=== PATIENT | female | born 1990 | race African-American/Black ===

== ENCOUNTER 2019-03-02 10:47 | Emergency (ER) | payer OTHER ==
[2019-03-02] MEDS ORDERED: SODIUM CHLORIDE 0.9% 1,000 ML IV ONE (11:33)
--- NOTE | 2019-03-02 11:33 | ED Physician Documentation ---
History of Present Illness - Stated complaint Stated Complaint: BLEEDING/10 WKS - Chief complaint Chief Complaint: General - History obtained from History obtained from: Patient - Additonal information Additional information: Patient is a 28-year-old female, , approximately 10 weeks presenting with vaginal spotting and lower abdominal cramping over the past 1 to 2 days. Patient denies other abdominal pain, nausea, vomiting, urinary changes, or stool changes. Patient also denies fever. Patient reports that she has been considered a high risk previously as her first child was premature by 2 months. Patient has not yet received an ultrasound to confirm this and has not yet received any care, but has been taking vitamins. No other improving or worsening factors noted. Review of Systems Constitutional: denies: Fever GI: reports: Abdominal Pain. denies: Nausea, Vomiting, Diarrhea : reports: Vaginal bleeding. denies: Dysuria PD PAST MEDICAL HISTORY - Past Medical History Past Medical History: No - Past Surgical History Past Surgical History: No - Allergies Allergies/Adverse Reactions: Allergies Allergy/AdvReac Type Severity Reaction Status Date / Time No Known Drug Allergies Allergy Verified 03/02/19 11:05 PD ED PE NORMAL - Vitals Vital signs reviewed: Yes - General General: Alert and oriented X 3, No acute distress, Well developed/nourished - HEENT HEENT: Atraumatic, Moist mucous membranes - Cardiac Cardiac: RRR, No murmur - Respiratory Respiratory: No respiratory distress, Clear bilaterally - Abdomen Abdomen: Soft, Non tender, Non distended, Other (Non gravid) - Derm Derm: Normal color, Warm and dry, No rash - Extremities Extremities: No deformity, No tenderness to palpate - Neuro Neuro: Alert and oriented X 3, No motor deficit, No sensory deficit - Psych Psych: Normal mood, Normal affect Results - Vitals Vitals: Vital Signs - 24 hr 03/02/19 03/02/19 11:02 11:23 Temperature 36.6 C Heart Rate 85 86 Respiratory 14 20 Rate Blood Pressure 113/67 121/60 O2 Saturation 99 99 Oxygen O2 Source Room air - Labs Labs: Laboratory Tests 03/02/19 03/02/19 03/02/19 11:40 11:40 11:43 WBC 9.3 RBC 4.54 Hgb 13.0 Hct 41.8 MCV 92.1 MCH 28.6 MCHC 31.1 L RDW 12.7 Plt Count 262 MPV 10.0 Neut # (Auto) 6.3 Lymph # (Auto) 2.0 [place] # (Auto) 0.8 Eos # (Auto) 0.1 Baso # (Auto) 0.1 Absolute Nucleated RBC 0.00 Nucleated RBC % 0.0 Sodium 134 L Potassium 4.1 Chloride 102 Carbon Dioxide 25 Anion Gap 7.0 BUN 11 Creatinine 0.5 Estimated GFR (MDRD) 177 Glucose 82 Calcium 9.5 Total Bilirubin 0.6 AST 18 ALT 16 Alkaline Phosphatase 33 L Total Protein 8.0 Albumin 4.3 Globulin 3.7 Albumin/Globulin Ratio 1.2 Lipase 44 HCG, Quant 096952.00 Urine Color Urine Clarity Urine pH Ur Specific [place] Urine Protein Urine Glucose (UA) Urine Ketones Urine Occult Blood Urine Nitrite Urine Bilirubin Urine Urobilinogen Ur Leukocyte Esterase Ur Microscopic Review Urine Culture Comments Blood Type Antibody Screen 03/02/19 03/02/19 11:43 Unknown WBC RBC Hgb Hct MCV MCH MCHC RDW Plt Count MPV Neut # (Auto) Lymph # (Auto) [place] # (Auto) Eos # (Auto) Baso # (Auto) Absolute Nucleated RBC Nucleated RBC % Sodium Potassium Chloride Carbon Dioxide Anion Gap BUN Creatinine Estimated GFR (MDRD) Glucose Calcium Total Bilirubin AST ALT Alkaline Phosphatase Total Protein Albumin Globulin Albumin/Globulin Ratio Lipase HCG, Quant Urine Color YELLOW Urine Clarity CLEAR Urine pH 6.5 Ur Specific [place] 1.020 Urine Protein NEGATIVE Urine Glucose (UA) NEGATIVE Urine Ketones NEGATIVE Urine Occult Blood NEGATIVE Urine Nitrite NEGATIVE Urine Bilirubin NEGATIVE Urine Urobilinogen 0.2 (NORMAL) Ur Leukocyte Esterase NEGATIVE Ur Microscopic Review NOT INDICATED Urine Culture Comments NOT INDICATED Blood Type O POSITIVE Antibody Screen NEGATIVE PD MEDICAL DECISION MAKING - ED course Complexity details: reviewed results, re-evaluated patient, considered differential, d/w patient ED course: Patient presenting with painless bleeding and first trimester . Have low suspicion for placental abruption or previa, but considered. Also concerning for impending or threatened miscarriage. No signs of complications that would reflect gestational hypertension, preeclampsia, eclampsia, or HELLP syndrome. Physical exam is rather unremarkable. Patient started on IV fluids, but did not require medications. Rh testing returned positive and patient did not require RhoGam. Screening lab work and urinalysis returned relatively unremarkable.No signs of infection or other complications present. Ultrasound found evidence of an intrauterine with appropriate heart rate approximately 8 weeks in gestation.. Gestational bleed was noted and this was communicated at length to the patient. Advised to continue with vitamins, as well as recommended close MAKE UP GIRL follow-up. Also discussed other supportive cares and return precautions. Patient voiced understanding and is comfortable with discharge plan. Departure - Departure Disposition: 01 Home, Self Care Clinical Impression: Vaginal bleeding affecting early Condition: Good Instructions: Bleeding Early Preg Follow-Up: your,doctor [Other] - Within 3 Days Comments: Please continue vitamins. Please contact your MAKE UP GIRL later today or tomorrow to schedule close follow-up, likely to include repeat ultrasound given findings today. Return to ED sooner if experience worsening bleeding, worsening pain, fever, or other concerns.
[2019-03-02 11:43] LABS: BILIRUBIN,URINE NEGATIVE (NEGATIVE); GLUCOSE, URINE (UA) NEGATIVE (NEGATIVE); KETONES,URINE (UA) NEGATIVE (NEGATIVE); LEUKOCYTE ESTERASE, URINE NEGATIVE (NEGATIVE); NITRITE,URINE NEGATIVE (NEGATIVE); OCCULT BLOOD,URINE NEGATIVE (NEGATIVE); PH,URINE 6.5 PH (5.0-7.5); PROTEIN,URINE NEGATIVE (NEGATIVE); UROBILINOGEN,URINE 0.2 (NORMAL) E.U./dL (NORMAL)
[2019-03-02 11:44] LABS: CLARITY,URINE CLEAR (CLEAR)
[2019-03-02 11:52] LABS: BASOPHILS # (AUTO) 0.1 10^3/uL (0.0-0.1); BASOPHILS % (AUTO) 0.5 %; EOSINOPHILS # (AUTO) 0.1 10^3/uL (0.0-0.7); LYMPHOCYTES % (AUTO) 21.7 %; MEAN CORPUSCULAR HEMOGLOBIN 28.6 pg (27.0-31.0); MEAN CORPUSCULAR HGB CONC 31.1 g/dL (32.0-36.0); MEAN CORPUSCULAR VOLUME 92.1 fL (81.0-99.0); MONOCYTES # (AUTO) 0.8 10^3/uL (0.0-1.0); MONOCYTES % (AUTO) 8.8 %; NEUTROPHILS # (AUTO) 6.3 10^3/uL (1.5-6.6); NEUTROPHILS % (AUTO) 67.8 %; PLT - PLATELET COUNT 262 10^3/uL (130-450); RED BLOOD COUNT 4.54 10^6/uL (4.20-5.40); RED CELL DISTRIBUTION WIDTH 12.7 % (12.0-15.0); WHITE BLOOD COUNT 9.3 x10^3/uL (4.8-10.8)
[2019-03-02 13:00] LABS: ALBUMIN 4.3 g/dL (3.2-5.5); ALBUMIN/GLOBULIN RATIO 1.2 (1.0-2.2); BILIRUBIN,TOTAL 0.6 mg/dL (0.2-1.0); CALCIUM 9.5 mg/dL (8.5-10.3); CREATININE 0.5 mg/dL (0.4-1.0)
--- NOTE | 2019-03-02 13:51 | Ultrasound Report ---
Reason: 10 weeks, bleeding and cramping Procedure Date: 03/02/2019 Accession Number: [id number] / [id number] Procedure: US - OB First Trimester CPT Code: FULL RESULT: EXAM: FIRST TRIMESTER OBSTETRIC ULTRASOUND (Less than 11 weeks) EXAM DATE: 03/02/2019 12:54 PM. CLINICAL HISTORY: Early , spotting and cramping. LMP: 12/29/2018. COMPARISONS: None. TECHNIQUE: Transabdominal ultrasound examination with static image documentation. CLINICAL DATES: EGA 9 weeks 0 days with ANKUSH 10/05/2019 based on LMP. ASSESSMENT: Gestational Sac: Single intrauterine. Mean gestational sac diameter: 29 mm = 8 weeks 0 days. Embryo: CRL (crown-rump length) 16.5 mm = 8 weeks 1 day. Cardiac activity: 169 beats per minute. Yolk sac: 3 mm. Amniotic fluid: Not accurately assessed at this gestational age. Early placenta: Not visible at this gestational age. Other: A perigestational fluid collection measures 8 x 10 x 16 mm.. MATERNAL STRUCTURES: Uterus: Anteverted. Unremarkable. Cervix: Closed. Right Ovary/Adnexa: The ovary measures 4.8 x 4.2 x 3.3 cm, volume 35 cc. Unremarkable. Left Ovary/Adnexa: The ovary measures 3.5 x 2.7 x 2.5 cm, volume 13 cc. Unremarkable. Free Fluid: None. Other: None. IMPRESSION: 1. Single viable intrauterine at EGA 8 weeks 1 day with ANKUSH 10/11/2019 based on crown-rump length, which is concordant with ANKUSH of 10/05/2019 based on LMP. 2. 1.6 cm arturo-gestational bleed noted. RADIA
[2019-03-02 14:38] VITALS: BP 102/72
== END 2019-03-02 14:40 | disposition home or self-care (01) ==
LOC: ED 10:47
DX: O20.9 Hemorrhage in early pregnancy, unspecified (principal); Z3A.08 8 weeks gestation of pregnancy; O09.211 Supervision of pregnancy with history of pre-term labor, first trimester
CPT/HCPCS: 36415; 76801; 80053; 81001; 81003; 83690; 84702; 85025; 86850; 86900; 86901; 87086; 96360; 99283; 99284

== ENCOUNTER 2019-09-05 08:00 | Outpatient (CLI) | payer OTHER ==
[2019-09-06 16:38] LABS: TRICHOMONAS VAGINALIS DNA NEGATIVE (NEGATIVE)
== END 2019-09-05 23:59 | disposition home or self-care (01) ==
LOC: LAB.R 08:00
PROVIDERS: ATTEND Obstetrics & Gynecology
DX: Z34.83 Encounter for supervision of other normal pregnancy, third trimester (principal)
CPT/HCPCS: 87491; 87591; 87661; 87797

== ENCOUNTER 2019-09-22 14:10 | Outpatient (CLI) | payer OTHER ==
[2019-09-22 14:52] LABS: HGB - HEMOGLOBIN 12.2 g/dL (12.0-16.0); MEAN CORPUSCULAR HEMOGLOBIN 29.9 pg (27.0-31.0); MEAN CORPUSCULAR HGB CONC 32.8 g/dL (32.0-36.0); MEAN CORPUSCULAR VOLUME 91.2 fL (81.0-99.0); MEAN PLATELET VOLUME 10.1 fL (7.9-10.8); RED BLOOD COUNT 4.08 10^6/uL (4.20-5.40); WHITE BLOOD COUNT 9.2 x10^3/uL (4.8-10.8)
[2019-09-22 15:15] LABS: CREATININE,URINE 120.2 mg/dL; PROTEIN/CREATININE RATIO,URINE 0.2 (<=0.2)
[2019-09-22 15:18] LABS: ALBUMIN 3.8 g/dL (3.2-5.5); BILIRUBIN,TOTAL 0.6 mg/dL (0.2-1.0); CALCIUM 9.4 mg/dL (8.5-10.3); CREATININE 0.4 mg/dL (0.4-1.0); TOTAL PROTEIN 7.5 g/dL (6.7-8.2)
== END 2019-09-22 14:11 | disposition home or self-care (01) ==
LOC: LAB 14:10
PROVIDERS: ATTEND Obstetrics & Gynecology
DX: O12.13 Gestational proteinuria, third trimester (principal); Z3A.00 Weeks of gestation of pregnancy not specified
CPT/HCPCS: 36415; 80053; 82570; 84156; 85027

== ENCOUNTER 2019-10-04 16:37 | Inpatient (IN) | payer OTHER ==
[2019-10-04] MEDS ORDERED: LEVONORGESTREL 20 MCG/24H IUD IY ONE ×3 (17:03→20:11)
[2019-10-04] MEDS ORDERED: SODIUM CHLORIDE FLUSH 0.9% 10 ML SYRINGE IVP PRN ×2 (17:08→17:33)
--- NOTE | 2019-10-04 17:17 | HISTORY & PHYSICAL EXAMINATION ---
Admit History - : 4 Parity: 2 Premature: 1 Ectopic: 0 : 1 Care: positive: [facility] Risk/History: positive: Other Complications This : positive: None Smoking Status: Never smoker - Mother's Labs Mother's Blood Type: positive: O Mother's RH: positive: Positive GBS: positive: Group B Step Negative Rubella Status: positive: Immune - Other Maternal History Other Maternal History: 29yo at 39 6/7 weeks by LMP c/w second trimester US O+ GBS neg presents with c/o contractions for the past 1-2 hours, stronger than they have been. No fluid leak or bleeding. No headache, n/v/f/c or dysuria. Denies complications. Pt has h/o fast labor. RPR/HepB & C/HIV NR GC/chlamydia neg Glucola 81 Varicella titer + Meds/Allgy - Home Medications Home Medications: Ambulatory Orders Medication Instructions Recorded Confirmed Pnv No.95/Ferrous Fum/Folic AC 1 cap PO DAILY 10/04/19 10/04/19 [ Caplet] - Allergies Allergies/Adverse Reactions: Allergies Allergy/AdvReac Type Severity Reaction Status Date / Time No Known Drug Allergies Allergy Verified 03/02/19 11:05 Review of Systems - All Other Systems All Other Systems: reports: Other (Neg except as noted) Physical - Abdominal Exam Vital Signs: Temp Pulse Resp BP Pulse Ox 98.1 F 88 20 125/81 H 99 10/04/19 16:49 10/04/19 16:49 10/04/19 16:49 10/04/19 16:49 10/04/19 16:49 Contraction Frequency (min/apart): 10-15 minutes Contraction Intensity: positive: Mild to moderate Uterine Resting Tone: positive: Soft - Monitoring Strip Review: positive: Category I - Presentation Presentation: positive: Vertex - Vaginal Exam Dilation (in cm): 1-2 Effacement (%): 0 Station: positive: -3 Cervical Position: positive: Posterior (Vertex by scan) - Speculum Exam Speculum Exam Performed: positive: No - Other Notes Labor Progress Note/Additional Text: HEENT/ NC/AT No nodes, neck supple RESP/ CTA CV/ RRR 3/6 systolic murmur along LSB ABD/ Gravid, non-tender. VE as noted Plan for Labor - Plan For Labor Plan for Labor: 29yo at 39 6/7 weeks, O+ GBS neg in prodromal labor. Plan IOL/augmentation. Cervix unfavorable, will start with cytotec. Transition to pit as indicated. EFW 3400gms Expect Planning epidural anesthesia and Mirena immediately . Physical Exam Height: 5 ft 7 in
[2019-10-04] MEDS ORDERED: ONDANSETRON 4 MG/2 ML VIAL IVP PRN (17:33)
[2019-10-04] MEDS ORDERED: fentaNYL 100 MCG/2 ML VIAL IVP PRN (17:33)
[2019-10-04] MEDS ORDERED: LACTATED RINGERS 1,000 ML IV SCH (18:00)
[2019-10-04] MEDS: miSOPROStoL 100 MCG TABLET PO SCH ×2 (18:22→22:16)
[2019-10-04 18:47] LABS: BASOPHILS % (AUTO) 0.2 %; EOSINOPHILS # (AUTO) 0.1 10^3/uL (0.0-0.7); EOSINOPHILS % (AUTO) 1.1 %; HGB - HEMOGLOBIN 12.1 g/dL (12.0-16.0); LYMPHOCYTES # (AUTO) 1.5 10^3/uL (1.5-3.5); LYMPHOCYTES % (AUTO) 16.5 %; MEAN CORPUSCULAR HEMOGLOBIN 30.1 pg (27.0-31.0); MEAN CORPUSCULAR HGB CONC 33.4 g/dL (32.0-36.0); MEAN PLATELET VOLUME 10.9 fL (7.9-10.8); MONOCYTES # (AUTO) 0.8 10^3/uL (0.0-1.0); MONOCYTES % (AUTO) 9.3 %; NEUTROPHILS # (AUTO) 6.5 10^3/uL (1.5-6.6); NEUTROPHILS % (AUTO) 71.9 %; PLT - PLATELET COUNT 176 10^3/uL (130-450); RED BLOOD COUNT 4.02 10^6/uL (4.20-5.40); RED CELL DISTRIBUTION WIDTH 13.3 % (12.0-15.0); WHITE BLOOD COUNT 9.1 x10^3/uL (4.8-10.8)
[2019-10-05] MEDS: miSOPROStoL 100 MCG TABLET PO SCH ×2 (02:15→06:27)
--- NOTE | 2019-10-05 07:43 | PROVIDER PROGRESS NOTE ---
Subjective - Prog Note Date Prog Note Date: 10/05/19 Prog Note Time: 07:41 - Subjective Subjective: Slept overnight. Starting to feel contractions a bit more. S/P miso x4, last at 06:20 VSS afeb Category 1 tracing Contractions moderate to palpation q 2-3 Exam deferred Continue current plan. Transition to pit as indicated. Labs normal Objective - Vital Signs/Intake & Output Intake & Output: Intake & Output 10/02/19 10/03/19 10/04/19 10/05/19 23:59 23:59 23:59 23:59 Intake Total 500 Balance 500 - Lab Results Fish Bones: 10/04/19 18:14 Other Labs: Lab Results x24hrs 10/04/19 10/04/19 Range/Units 18:14 18:14 WBC 9.1 (4.8-10.8) x10^3/uL RBC 4.02 L (4.20-5.40) 10^6/uL Hgb 12.1 (12.0-16.0) g/dL Hct 36.2 L (37.0-47.0) % MCV 90.0 (81.0-99.0) fL MCH 30.1 (27.0-31.0) pg MCHC 33.4 (32.0-36.0) g/dL RDW 13.3 (12.0-15.0) % Plt Count 176 (130-450) 10^3/uL MPV 10.9 H (7.9-10.8) fL Neut # (Auto) 6.5 (1.5-6.6) 10^3/uL Lymph # (Auto) 1.5 (1.5-3.5) 10^3/uL [place] # (Auto) 0.8 (0.0-1.0) 10^3/uL Eos # (Auto) 0.1 (0.0-0.7) 10^3/uL Baso # (Auto) 0.0 (0.0-0.1) 10^3/uL Absolute Nucleated RBC 0.00 x10^3/uL Nucleated RBC % 0.0 /100WBC Blood Type O POSITIVE Antibody Screen NEGATIVE
[2019-10-05] MEDS ORDERED: LACTATED RINGERS 1,000 ML IV SCH ×2 (10:21→15:00)
--- NOTE | 2019-10-05 10:25 | PROVIDER PROGRESS NOTE ---
Subjective - Prog Note Date Prog Note Date: 10/05/19 Prog Note Time: 10:23 - Subjective Subjective: Continues to be fairly comfortable VSS afeb Category 1 Exam 2/-3, minimal change Plan to start pitocin; contrac tions too frequent for another dose of miso. Consider AROM when head applied Objective - Vital Signs/Intake & Output Intake & Output: Intake & Output 10/02/19 10/03/19 10/04/19 10/05/19 23:59 23:59 23:59 23:59 Intake Total 700 Balance 700 - Lab Results Fish Bones: 10/04/19 18:14 Other Labs: Lab Results x24hrs 10/04/19 10/04/19 Range/Units 18:14 18:14 WBC 9.1 (4.8-10.8) x10^3/uL RBC 4.02 L (4.20-5.40) 10^6/uL Hgb 12.1 (12.0-16.0) g/dL Hct 36.2 L (37.0-47.0) % MCV 90.0 (81.0-99.0) fL MCH 30.1 (27.0-31.0) pg MCHC 33.4 (32.0-36.0) g/dL RDW 13.3 (12.0-15.0) % Plt Count 176 (130-450) 10^3/uL MPV 10.9 H (7.9-10.8) fL Neut # (Auto) 6.5 (1.5-6.6) 10^3/uL Lymph # (Auto) 1.5 (1.5-3.5) 10^3/uL [place] # (Auto) 0.8 (0.0-1.0) 10^3/uL Eos # (Auto) 0.1 (0.0-0.7) 10^3/uL Baso # (Auto) 0.0 (0.0-0.1) 10^3/uL Absolute Nucleated RBC 0.00 x10^3/uL Nucleated RBC % 0.0 /100WBC Blood Type O POSITIVE Antibody Screen NEGATIVE
[2019-10-05] MEDS ORDERED: OXYTOCIN/DEXTROSE 5 % 30 UNIT/500 ML BAG IV SCH (11:00)
--- NOTE | 2019-10-05 12:16 | PROVIDER PROGRESS NOTE ---
Subjective - Prog Note Date Prog Note Date: 10/05/19 Prog Note Time: 12:14 - Subjective Subjective: Asking for epidural. Contractions palpate strong. Pit at 4 VSS afeb Category 1 tracing VE 4cm/90/-2 BOWI Good progress. Will call for epidural then consider AROM Objective - Vital Signs/Intake & Output Intake & Output: Intake & Output 10/02/19 10/03/19 10/04/19 10/05/19 23:59 23:59 23:59 23:59 Intake Total 700 Balance 700 - Lab Results Fish Bones: 10/04/19 18:14 Other Labs: Lab Results x24hrs 10/04/19 10/04/19 Range/Units 18:14 18:14 WBC 9.1 (4.8-10.8) x10^3/uL RBC 4.02 L (4.20-5.40) 10^6/uL Hgb 12.1 (12.0-16.0) g/dL Hct 36.2 L (37.0-47.0) % MCV 90.0 (81.0-99.0) fL MCH 30.1 (27.0-31.0) pg MCHC 33.4 (32.0-36.0) g/dL RDW 13.3 (12.0-15.0) % Plt Count 176 (130-450) 10^3/uL MPV 10.9 H (7.9-10.8) fL Neut # (Auto) 6.5 (1.5-6.6) 10^3/uL Lymph # (Auto) 1.5 (1.5-3.5) 10^3/uL [place] # (Auto) 0.8 (0.0-1.0) 10^3/uL Eos # (Auto) 0.1 (0.0-0.7) 10^3/uL Baso # (Auto) 0.0 (0.0-0.1) 10^3/uL Absolute Nucleated RBC 0.00 x10^3/uL Nucleated RBC % 0.0 /100WBC Blood Type O POSITIVE Antibody Screen NEGATIVE
[2019-10-05] MEDS ORDERED: LIDOCAINE-MPF 1% 30 ML VIAL ONE (12:29)
[2019-10-05] MEDS ORDERED: ROPIVACAINE 0.2% 200 MG/100 ML BAG EP ONE (12:29)
[2019-10-05] MEDS ORDERED: NALBUPHINE 10 MG/ML AMP IVP PRN (13:06)
[2019-10-05] MEDS ORDERED: METOCLOPRAMIDE 10 MG/2 ML VIAL IVP PRN (13:06)
[2019-10-05] MEDS ORDERED: ROPIVACAINE 0.2% 200 MG/100 ML BAG EP PRN (13:06)
[2019-10-05] MEDS ORDERED: LACTATED RINGERS 500 ML IV ONE (13:06)
[2019-10-05] MEDS ORDERED: NALOXONE 0.4 MG/ML VIAL IVP PRN (13:06)
[2019-10-05] MEDS ORDERED: diphenhydrAMINE INJ 50 MG/ML VIAL IVP PRN (13:06)
[2019-10-05] MEDS ORDERED: ONDANSETRON 4 MG/2 ML VIAL IVP PRN (13:06)
[2019-10-05] MEDS ORDERED: ePHEDrine 50 MG/ML VIAL IVP PRN (13:06)
--- NOTE | 2019-10-05 13:06 | ANESTHESIA ---
Pre-Anesthesia VS, & Labs - Diagnosis active labor - Procedure labor epidural Vital Signs: Temp Pulse Resp BP Pulse Ox 36.7 C 88 20 125/81 H 99 10/04/19 16:49 10/04/19 16:49 10/04/19 16:49 10/04/19 16:49 10/04/19 16:49 Height 5 ft 7 in Weight (kg) 87.09 kg Body Mass Index 25.0 - Is Patient ?: Yes - Lab Results Current Lab Results: Laboratory Tests 10/04/19 18:14: Blood Type O POSITIVE, Antibody Screen NEGATIVE 10/04/19 18:14: WBC 9.1, RBC 4.02 L, Hgb 12.1, Hct 36.2 L, MCV 90.0, MCH 30.1, MCHC 33.4, RDW 13.3, Plt Count 176, MPV 10.9 H, Neut # (Auto) 6.5, Lymph # (Auto) 1.5, [place] # (Auto) 0.8, Eos # (Auto) 0.1, Baso # (Auto) 0.0, Absolute Nucleated RBC 0.00, Nucleated RBC % 0.0 Fish Bones: 10/04/19 18:14 Home Medications and Allergies Home Medications: Ambulatory Orders Pnv No.95/Ferrous Fum/Folic AC [ Caplet] 1 cap PO DAILY 10/04/19 Active Medications Fentanyl (Fentanyl) 50 mcg IVP Q1H PRN PRN Reason: PAIN OXYTOCIN/DEXTROSE 5 % (Pitocin/Dextrose 5%) 30 unit in 500 mls @ 2 mls/hr IV TITR ELDON; Protocol Last Admin: 10/05/19 10:32 Dose: 2 milliunit/min, 2 mls/hr Lactated Ringer's (Lr) 1,000 mls @ 250 mls/hr IV .Q4H ELDON Last Admin: 10/05/19 10:34 Dose: 250 mls/hr Misoprostol (Cytotec) 50 mcg PO Q4H ELDON Last Admin: 10/05/19 06:27 Dose: 50 mcg Ondansetron HCl (Zofran Inj) 4 mg IVP Q4H PRN PRN Reason: Nausea / Vomiting Sodium Chloride (Normal Saline Flush 0.9%) 10 ml IVP PRN PRN PRN Reason: NEEDED PER PROVIDER ORDERS Sodium Chloride (Normal Saline Flush 0.9%) 10 ml IVP 0100,0900,1700 ELDON Sodium Chloride (Normal Saline Flush 0.9%) 10 ml IVP PRN PRN PRN Reason: NEEDED PER PROVIDER ORDERS Pnv No.95/Ferrous Fum/Folic AC [ Caplet] 1 cap PO DAILY 10/04/19 Allergies/Adverse Reactions: Allergies Allergy/AdvReac Type Severity Reaction Status Date / Time No Known Drug Allergies Allergy Verified 03/02/19 11:05 Anes History & Medical History - Anesthetic History Anesthesia Complications: reports: No previous complications Family history of Anesthesia Complications: Denies Family history of Malignant Hyperthermia: Denies - Medical History Cardiovascular: reports: None Pulmonary: reports: None Gastrointestinal: reports: None Urinary: reports: Frequency Neuro: reports: None Musculoskeletal: reports: None Endocrine/Autoimmune: reports: None Blood Disorders: reports: None Skin: reports: None Smoking Status: Never smoker Psychosocial: reports: No issues indicated - Obstetrical History : 4 Parity: 2 Events: positive: Other Complications: positive: None Exam General: Alert, Oriented x3, Cooperative, No acute distress Dental: WNL Mouth Openin Fingerbreadth Neck Mobility: Normal Mallampati classification: III Thyromental Distance: less than 4 cm Respiratory: Lungs clear, Normal breath sounds, No respiratory distress, No accessory muscle use Cardiovascular: Regular rate, Normal S1, Normal S2, No murmurs Abdomen: Normal bowel sounds, Soft, No tenderness, No hepatospenomegaly, No masses Extremities: No clubbing, No cyanosis, No edema, Normal pulses, No tenderness/swelling Neurological: Normal gait, Normal speech, Strength at 5/5 X4 ext, Normal tone, Sensation intact, Cranial nerves 3-12 NL, Reflexes 2+ Plan Anesthesia Type: Epidural Consent for Procedure(s) Verified and Reviewed: Yes Code Status: Attempt Resuscitation ASA classification: 2-Mild systemic disease Is this case an emergency?: No
--- NOTE | 2019-10-05 13:10 | PROVIDER PROGRESS NOTE ---
Subjective - Prog Note Date Prog Note Date: 10/05/19 Prog Note Time: 13:08 - Subjective Subjective: Epidural in place. VSS afeb Few early decels noted, very shallow Pit at 6 SROM at 12:54 clear VE 7cm/100/-1 Doing well. Expect soon. Objective - Vital Signs/Intake & Output Intake & Output: Intake & Output 10/02/19 10/03/19 10/04/19 10/05/19 23:59 23:59 23:59 23:59 Intake Total 700 Balance 700 - Lab Results Fish Bones: 10/04/19 18:14 Other Labs: Lab Results x24hrs 10/04/19 10/04/19 Range/Units 18:14 18:14 WBC 9.1 (4.8-10.8) x10^3/uL RBC 4.02 L (4.20-5.40) 10^6/uL Hgb 12.1 (12.0-16.0) g/dL Hct 36.2 L (37.0-47.0) % MCV 90.0 (81.0-99.0) fL MCH 30.1 (27.0-31.0) pg MCHC 33.4 (32.0-36.0) g/dL RDW 13.3 (12.0-15.0) % Plt Count 176 (130-450) 10^3/uL MPV 10.9 H (7.9-10.8) fL Neut # (Auto) 6.5 (1.5-6.6) 10^3/uL Lymph # (Auto) 1.5 (1.5-3.5) 10^3/uL [place] # (Auto) 0.8 (0.0-1.0) 10^3/uL Eos # (Auto) 0.1 (0.0-0.7) 10^3/uL Baso # (Auto) 0.0 (0.0-0.1) 10^3/uL Absolute Nucleated RBC 0.00 x10^3/uL Nucleated RBC % 0.0 /100WBC Blood Type O POSITIVE Antibody Screen NEGATIVE
--- NOTE | 2019-10-05 14:33 | PROVIDER PROGRESS NOTE ---
Subjective - Prog Note Date Prog Note Date: 10/05/19 Prog Note Time: 13:35 - Subjective Subjective: Feeling pressure. Fully dilated, +2 at 13:35 Will start pushing Objective - Vital Signs/Intake & Output Intake & Output: Intake & Output 10/02/19 10/03/19 10/04/19 10/05/19 23:59 23:59 23:59 23:59 Intake Total 700 Balance 700 - Lab Results Fish Bones: 10/04/19 18:14 Other Labs: Lab Results x24hrs 10/04/19 10/04/19 Range/Units 18:14 18:14 WBC 9.1 (4.8-10.8) x10^3/uL RBC 4.02 L (4.20-5.40) 10^6/uL Hgb 12.1 (12.0-16.0) g/dL Hct 36.2 L (37.0-47.0) % MCV 90.0 (81.0-99.0) fL MCH 30.1 (27.0-31.0) pg MCHC 33.4 (32.0-36.0) g/dL RDW 13.3 (12.0-15.0) % Plt Count 176 (130-450) 10^3/uL MPV 10.9 H (7.9-10.8) fL Neut # (Auto) 6.5 (1.5-6.6) 10^3/uL Lymph # (Auto) 1.5 (1.5-3.5) 10^3/uL [place] # (Auto) 0.8 (0.0-1.0) 10^3/uL Eos # (Auto) 0.1 (0.0-0.7) 10^3/uL Baso # (Auto) 0.0 (0.0-0.1) 10^3/uL Absolute Nucleated RBC 0.00 x10^3/uL Nucleated RBC % 0.0 /100WBC Blood Type O POSITIVE Antibody Screen NEGATIVE
--- NOTE | 2019-10-05 14:36 | DELIVERY NOTE ---
Delivery Note - Labor Labor: positive: Augmented by oxytocin - Delivery Method Infant Delivery Method: positive: Spontaneous vaginal delivery - Cervical Ripening Method Cervical Ripening Method: positive: Misoprostil - Presentation Presentation: positive: Vertex, YOHANA - right occiput anterior - Nuchal Cord Nuchal Cord: positive: None - Anesthetic Anesthetic Type: - Amniotic Fluid Description Amniotic Fluid Description: positive: Clear - Episiotomy Type Episiotomy Type: positive: None - Laceration Laceration: positive: None - Delivery Outcome Delivery Outcome: positive: Livebirth - : positive: Placed in direct skin contact with mother, Bulb syringe, Warmed, [place] used [place] sex: positive: Male - Cord Cord: positive: 3 vessels - Placenta Placenta: positive: Intact, Spontaneous - Estimated Blood Loss Estimated Blood Loss (in cc): 200 - Post Delivery Events Post Delivery Events: positive: No post delivery events (Mirena placed. Lot [id number] Exp November 2021)
[2019-10-05] MEDS ORDERED: SIMETHICONE CHEW 80 MG TABLET PO PRN (14:39)
[2019-10-05] MEDS ORDERED: WITCH HAZEL/GLYCERIN 1 PAD TOP PRN (14:39)
[2019-10-05] MEDS ORDERED: MAGNESIUM HYDROXIDE 2,400 MG/30 ML UDC PO PRN (14:39)
[2019-10-05] MEDS ORDERED: HYDROCORTISONE 1% CREAM 28 GM TUBE PR PRN (14:39)
--- NOTE | 2019-10-05 14:39 | PROVIDER PROGRESS NOTE ---
Subjective - Prog Note Date Prog Note Date: 10/05/19 Prog Note Time: 14:37 - Subjective Subjective: of 3610gm male infant apgars 8/9 at 14:09 from YOHANA. Spontaneous, vigorous cry. Placenta intact, normally inseted 3VC, delivered with traction No lacerations Mirena placed: Lot [id number], exp 11/2021 EBL 200cc Objective - Vital Signs/Intake & Output Intake & Output: Intake & Output 10/02/19 10/03/19 10/04/19 10/05/19 23:59 23:59 23:59 23:59 Intake Total 700 Balance 700 - Lab Results Fish Bones: 10/04/19 18:14 Other Labs: Lab Results x24hrs 10/04/19 10/04/19 Range/Units 18:14 18:14 WBC 9.1 (4.8-10.8) x10^3/uL RBC 4.02 L (4.20-5.40) 10^6/uL Hgb 12.1 (12.0-16.0) g/dL Hct 36.2 L (37.0-47.0) % MCV 90.0 (81.0-99.0) fL MCH 30.1 (27.0-31.0) pg MCHC 33.4 (32.0-36.0) g/dL RDW 13.3 (12.0-15.0) % Plt Count 176 (130-450) 10^3/uL MPV 10.9 H (7.9-10.8) fL Neut # (Auto) 6.5 (1.5-6.6) 10^3/uL Lymph # (Auto) 1.5 (1.5-3.5) 10^3/uL [place] # (Auto) 0.8 (0.0-1.0) 10^3/uL Eos # (Auto) 0.1 (0.0-0.7) 10^3/uL Baso # (Auto) 0.0 (0.0-0.1) 10^3/uL Absolute Nucleated RBC 0.00 x10^3/uL Nucleated RBC % 0.0 /100WBC Blood Type O POSITIVE Antibody Screen NEGATIVE
[2019-10-05] MEDS: ACETAMINOPHEN 500 MG TABLET PO SCH (16:04)
[2019-10-05] MEDS: IBUPROFEN 600 MG TABLET PO SCH ×2 (16:05→22:50)
[2019-10-05] MEDS: SODIUM CHLORIDE FLUSH 0.9% 10 ML SYRINGE IVP SCH ×2 (16:56→17:09)
[2019-10-05] MEDS ORDERED: ONDANSETRON 4 MG/2 ML VIAL IVP ONE (17:45)
[2019-10-05] MEDS ORDERED: IRON DEXTRAN 1,000 MG in SODIUM CHLORIDE 0.9% 250 ML IV ONE (18:00)
[2019-10-05] MEDS: DOCUSATE SODIUM 100 MG CAPSULE PO PRN (20:10)
[2019-10-06] MEDS: ACETAMINOPHEN 500 MG TABLET PO SCH (01:12)
[2019-10-06] MEDS: HYDROcod/ACETAM 5/325 MG TABLET PO PRN ×3 (04:12→13:53)
[2019-10-06] MEDS: IBUPROFEN 600 MG TABLET PO SCH ×3 (04:12→16:40)
[2019-10-06] MEDS: DOCUSATE SODIUM 100 MG CAPSULE PO PRN (08:40)
--- NOTE | 2019-10-06 11:23 | PROVIDER PROGRESS NOTE ---
Subjective - Prog Note Date Prog Note Date: 10/06/19 Prog Note Time: 11:20 - Subjective Subjective: PPD 1 Feeling well, ambulating, minimal lochia. [place] reg diet. well. VSS afeb Abd soft, non-tender. Fundus firm, below umbilicus Trace bipedal edema A/P Stable. S/P iron infusion Mirena in place Expect DC tonight or tomorrow depending on baby. Objective - Vital Signs/Intake & Output Vital Signs: Vital Signs x48h Temp Pulse Resp BP Pulse Ox 10/06/19 08:08 98.1 F 77 16 106/67 99 10/06/19 04:14 97.7 F 72 16 111/57 L 98 Intake & Output: Intake & Output 10/03/19 10/04/19 10/05/19 10/06/19 23:59 23:59 23:59 23:59 Intake Total 700 Output Total 150 Balance 550 - Lab Results Fish Bones: 10/04/19 18:14
--- NOTE | 2019-10-06 11:26 | DISCHARGE SUMMARY ---
"Discharge Summary Admit Date: 10/04/19 Discharge Date: 10/06/19 Discharging Provider: Sherry Friedman MD Code Status: Attempt Resuscitation Condition at Discharge: Good Discharge Disposition: 01 Home, Self Care - DIAGNOSES Admission Diagnoses: at 39 6/7 weeks Prodromal labor Iron Deficiency anemia Discharge Diagnoses with Status of Each Condition: Term delivered; Iron deficiency treated with IV iron Undesired fertility; Mirena placed - HPI History of Present Illness: 29yo at 39 6/7 weeks by LMP c/w second trimester US O+ GBS neg presented with c/o contractions. No fluid leak or bleeding. No headache, n/v/f/c or dysuria. Denied complications. Pt has h/o fast labor. RPR/HepB & C/HIV NR GC/chlamydia neg Glucola 81 Varicella titer + - CONSULTS | PROCEDURES Procedures: Mirena placement - HOSPITAL COURSE Hospital Course: Patient was admitted for cervical ripening overnight. She was transitioned to pitocin and rapidly progressed to full dilation. She was delivered of a 3610gm male infant apgars 8/9 on 10/05. No lacerations. EBL 200cc. Her course was uncomplicated, she was well. She was given IV iron and a Mirena IUD was placed immediately . She was DC'd home on PPD 1 with usual follow up scheduled. - ALLERGIES Allergies/Adverse Reactions: Allergies Allergy/AdvReac Type Severity Reaction Status Date / Time No Known Drug Allergies Allergy Verified 03/02/19 11:05 - MEDICATIONS Home Medications: Ambulatory Orders Medication Instructions Recorded Confirmed Pnv No.95/Ferrous Fum/Folic AC 1 cap PO DAILY 10/04/19 10/04/19 [ Caplet] Home Medications Other | Comments: Ibuprofen Vicodin Tylenol - PHYSICAL EXAM AT DISCHARGE General Appearance: positive: No acute distress Respiratory: positive: Chest non-tender, No respiratory distress Cardiovascular: positive: Regular rate & rhythm Abdomen: positive: Non-tender, No distention (Fundus firm below umbilicus) Skin: positive: Color nml, Warm, Dry Extremities: positive: Non-tender (Trace bipedal edema) Neurologic/Psychiatric: positive: Oriented x3 - LABS Result Diagrams: 10/04/19 18:14"
--- NOTE | 2019-10-06 11:36 | Discharge Plan ---
Discharge Plan Problem Reviewed?: Yes Disposition: Home, Self Care Condition: Good Prescriptions: HYDROcod/ACETAM 5/325 [[place] 5/325] 1 tab PO Q4HR PRN #20 tablet PRN Reason: Pain Ibuprofen [Motrin] 600 mg PO Q6H PRN #30 tablet PRN Reason: Pain Diet: Regular Activity Restrictions: Pelvic rest Shower Restrictions: No No Smoking: If you smoke, Please STOP! Call for help. Follow-up with: Amador Toth MD [Provider Admit Priv/Credential] -
[2019-10-06 16:41] VITALS: BP 109/54
--- NOTE | 2019-10-06 16:55 | Labor Flowsheet ---
Labor Flowsheet Datetime Report Generated by CPN: 10/06/2019 16:55 Datetime: 10/06/2019 16:35 VITAL SIGNS NBP Sys/Ashleigh/Mean (mmHg): 109 : 54 : 67 Pulse: 75 LaborFlag: Labor Datetime: 10/05/2019 20:08 SpO2 (%): 99 Datetime: 10/05/2019 14:09 UTERINE ACTIVITY Monitor Mode: External Frequency (min): 2 Quality: Strong Duration (sec): 70 Pattern: Normal: <= 5 Contractions in 10 Minutes Resting Tone (Palpate): Relaxed FHR Baseline Rate : 130 Comments: in between ctx/pushing Datetime: 10/05/2019 14:05 MEDICATIONS Pitocin (milliunits): Increased to @ 8 Datetime: 10/05/2019 13:45 FHR Baseline Changes: No Baseline Change Variability: Moderate 6-25 bpm Accelerations: 15X15 Decelerations: None Category: Category I Datetime: 10/05/2019 13:35 VAGINAL EXAM Dilatation (cm): 10.0 Station: 2 Exam by: Erber COMMUNICATION Communication: Provider at Bedside Provider Notified (Name): Erber Datetime: 10/05/2019 13:30 ASSESSMENT A Monitor Mode: Telemetry Oxygen Method: Room Air Datetime: 10/05/2019 13:05 Effacement (%): 100 Datetime: 10/05/2019 13:00 Communication Comments: dr erber Datetime: 10/05/2019 12:54 Membrane Status: Ruptured Membranes Rupture Method: Spontaneous Amniotic Fluid Color: Clear Amniotic Fluid Amount: Small Epidural Procedure: Loading Dose Epidural Procedure Other: Pump Started Datetime: 10/05/2019 12:47 PROCEDURE TIME OUT Procedure Verify: Correct Patient Identity; Correct Side and Site are Marked; Accurate Procedure Co nsent Form; Agreement on Procedure to be Done; Correct Patient Position; Safety Precautions Based on Patient History or Medication Use ANESTHESIA Anesthesia Plans: Epidural Epidural Positioning: Sitting Datetime: 10/05/2019 12:26 Anesthesia Comments: provider here Datetime: 10/05/2019 12:20 Respirations: 17 Temperature (C): 37.2 Datetime: 10/05/2019 12:15 Monitor Interventions for FHR: Ultrasound Adjusted Pain Assessment Comments: requesting epidural Comfort Measures: Breathing/Relaxation; Coaching Datetime: 10/05/2019 12:14 I/O Interventions: Up to BR Datetime: 10/05/2019 11:46 Patient Position/Activity: Hands-Knees Datetime: 10/05/2019 11:19 Patient Care Comments: with peanut ball Datetime: 10/05/2019 11:00 Pitocin Checklist: At Least 1 Acceleration of 15 bpm x 15 Seconds in 30 Minutes or Adequate Variabi lity; No More than 1 Late Deceleration Occurred in Past 30 Minutes; No More than 2 Variable Decelerat ions > 60 Seconds in Duration and decreasing >60 bpm in 30 minutes; No More than 5 Uterine Contractio ns in 10 Minutes for any 20 Minute Interval; Uterus Palpates Soft between Contractions Datetime: 10/05/2019 10:42 PATIENT CARE IV/Blood Work: IV Bolus Started Datetime: 10/05/2019 10:30 PAIN Pain Scale: 8 Pain Relief Measures: Comfort Measures Datetime: 10/05/2019 09:50 Pain Coping: Talking Through Contractions Datetime: 10/05/2019 06:20 Cervical Ripening Agents: Cytotec @ 50 Datetime: 10/05/2019 06:00 Stage of : Labor Pain Presence: Intermittent Pain Type: Cramping Pain Location: Abdomen Provider Reviewed Strip: No Notification Reason: Status Update Datetime: 10/05/2019 05:30 Monitor Interventions for UA: [place] Adjusted Datetime: 10/05/2019 02:20 Medication Comments: CTX 3 in 10 minutes per order. Pt not uncomfortable. Able to sleep , not katty athing with contractions. Datetime: 10/04/2019 21:00 Contraction Comments: Pt states ctx less intense Datetime: 10/04/2019 19:30 MATERNAL ASSESSMENT Level of Consciousness: Fully Conscious DTR's/Clonus: DTRs 2+ Headache: Denies RUQ Epigastric Pain: Denies
== END 2019-10-06 16:54 | disposition home or self-care (01) | DRG 807 ==
LOC: WFO 16:37 → FBP 16:40 → WFO 17:07 → FBP 17:08
PROVIDERS: ADMIT Obstetrics & Gynecology; ATTEND Obstetrics & Gynecology
PROC: 10E0XZZ Delivery of Products of Conception, External Approach (ICD-10-PCS; principal; 2019-10-05)
PROC: 0UH97HZ Insertion of Contraceptive Device into Uterus, Via Natural or Artificial Opening (ICD-10-PCS; 2019-10-05)
DX: O99.02 Anemia complicating childbirth (principal); Z37.0 Single live birth; D50.9 Iron deficiency anemia, unspecified; Z3A.39 39 weeks gestation of pregnancy; Z30.8 Encounter for other contraceptive management
CPT/HCPCS: 85025; 86850; 86900; 86901; A9270; J1750; J7120; J7298; 99213

== ENCOUNTER 2021-10-05 17:35 | Emergency (ER) | payer OTHER ==
--- NOTE | 2021-10-05 18:12 | XRAY Report ---
PROCEDURE: Chest 1 View X-Ray INDICATIONS: Chest pain TECHNIQUE: One view of the chest was acquired. COMPARISON: None FINDINGS: Surgical changes and devices: None. Lungs and pleura: No pleural effusions or pneumothorax. Lungs are clear. Mediastinum: Mediastinal contours appear normal. Heart size is normal. Bones and chest wall: No suspicious bony lesions. Overlying soft tissues appear unremarkable. IMPRESSION: No acute cardiopulmonary findings Reviewed by: John Moreno MD on 10/05/2021 5:11 PM [place] Approved by: John Moreno MD on 10/05/2021 5:11 PM [facility] Station ID: [id number]
[2021-10-05 18:20] LABS: BASOPHILS % (AUTO) 0.6 %; EOSINOPHILS # (AUTO) 0.1 10^3/uL (0.0-0.7); EOSINOPHILS % (AUTO) 1.9 %; HCT - HEMATOCRIT 39.3 % (37.0-47.0); HGB - HEMOGLOBIN 12.7 g/dL (12.0-16.0); LYMPHOCYTES % (AUTO) 32.2 %; MEAN CORPUSCULAR HEMOGLOBIN 29.2 pg (27.0-31.0); MEAN CORPUSCULAR HGB CONC 32.3 g/dL (32.0-36.0); MEAN CORPUSCULAR VOLUME 90.3 fL (81.0-99.0); MEAN PLATELET VOLUME 9.6 fL (7.9-10.8); MONOCYTES # (AUTO) 0.8 10^3/uL (0.0-1.0); MONOCYTES % (AUTO) 13.3 %; NEUTROPHILS # (AUTO) 3.2 10^3/uL (1.5-6.6); NEUTROPHILS % (AUTO) 51.8 %; PLT - PLATELET COUNT 263 10^3/uL (130-450); RED BLOOD COUNT 4.35 10^6/uL (4.20-5.40); RED CELL DISTRIBUTION WIDTH 12.2 % (12.0-15.0); WHITE BLOOD COUNT 6.2 x10^3/uL (4.8-10.8)
--- NOTE | 2021-10-05 18:21 | ED Physician Documentation ---
History of Present Illness - Stated complaint Stated Complaint: CHEST PX - Chief complaint Chief Complaint: Cardiac - History obtained from History obtained from: Patient - History of Present Illness Timing: How many days ago (2) Pain level max: 5 Pain level now: 4 - Additonal information Additional information: Patient is a 31-year-old female who presents to the emergency department stating that she was working out a few days ago when she felt a pull across to her anterior chest wall. She states that it is worse with movement, better with rest. No shortness of breath. No cough. No congestion. No fever. No leg swelling. No recent travel. Reproducible with movement and palpation. Review of Systems Constitutional: denies: Fever, Chills Throat: denies: Sore throat Cardiac: denies: Palpitations, Pedal edema, Calf pain Respiratory: denies: Cough GI: denies: Vomiting, Diarrhea : denies: Now EGA Skin: denies: Rash Musculoskeletal: denies: Neck pain, Back pain PD PAST MEDICAL HISTORY - Past Medical History Cardiovascular: None Respiratory: None Neuro: None Endocrine/Autoimmune: None GI: None ELECT[employer] BLANK[employer] P[employer]ER: Other : Frequency HEENT: None Psych: None Musculoskeletal: None Derm: None - Past Surgical History Past Surgical History: No - Present Medications Home Medications: Ambulatory Orders Medication Instructions Recorded Confirmed Pnv No.95/Ferrous Fum/Folic AC 1 cap PO DAILY 10/04/19 10/04/19 [ [place]] HYDROcod/ACETAM 5/325 [[place] 5/325] 1 tab PO Q4HR PRN #20 tablet 10/06/19 Ibuprofen [Motrin] 600 mg PO Q6H PRN #30 tablet 10/06/19 - Allergies Allergies/Adverse Reactions: Allergies Allergy/AdvReac Type Severity Reaction Status Date / Time No Known Drug Allergies Allergy Verified 10/05/21 17:43 - Social History Does the pt smoke?: No Smoking Status: Never smoker PD ED PE NORMAL - Vitals Vital signs reviewed: Yes - General General: Alert and oriented X 3, No acute distress - HEENT HEENT: Moist mucous membranes - Neck Neck: Supple, no meningeal sign - Cardiac Cardiac: RRR, Strong equal pulses - Respiratory Respiratory: No respiratory distress, Clear bilaterally, Other (Tenderness to palpation across the anterior chest wall, reproduces her pain) - Abdomen Abdomen: Soft, Non tender, Non distended - Derm Derm: Warm and dry - Extremities Extremities: No edema, No calf tenderness / cord - Neuro Neuro: Alert and oriented X 3 - Psych Psych: Normal mood, Normal affect Results - Vitals Vitals: Vital Signs - 24 hr 10/05/21 10/05/21 17:39 18:29 Temperature 36.5 C 36.8 C Heart Rate 72 76 Respiratory 16 16 Rate Blood Pressure 148/86 H 121/70 O2 Saturation 100 98 Oxygen O2 Source Room air - EKG (time done) 1742 Rate: Rate (enter#) (85) Rhythm: NSR [place]: Normal Intervals: Normal AR QRS: Normal Ischemia: Normal ST segments Other comments: Other comments (delta waves) - Labs Labs: Laboratory Tests 10/05/21 10/05/21 10/05/21 18:17 18:17 18:17 WBC 6.2 RBC 4.35 Hgb 12.7 Hct 39.3 MCV 90.3 MCH 29.2 MCHC 32.3 RDW 12.2 Plt Count 263 MPV 9.6 Neut # (Auto) 3.2 Lymph # (Auto) 2.0 [place] # (Auto) 0.8 Eos # (Auto) 0.1 Baso # (Auto) 0.0 Absolute Nucleated RBC 0.00 Nucleated RBC % 0.0 Sodium 138 Potassium 3.9 Chloride 103 Carbon Dioxide 27 Anion Gap 8.0 BUN 16 Creatinine 0.8 Estimated GFR (MDRD) 101 Glucose 93 Calcium 9.1 Total Bilirubin < 0.2 L AST 13 ALT 16 Alkaline Phosphatase 36 L Troponin I High Sens < 2.3 L Total Protein 7.8 Albumin 4.5 Globulin 3.3 Albumin/Globulin Ratio 1.4 Lipase 46 - Rads (name of study) cxr Radiology: Final report received, EMP read contemporaneously, See rad report (no acute abnormality) PD MEDICAL DECISION MAKING - ED course Complexity details: reviewed results, re-evaluated patient, considered differential (No ST elevation OK, no aortic dissection, no PE, no tension pneumothorax, no aortic aneurysm), d/w patient ED course: 31-year-old female with anterior chest wall pain. No acute findings on EKG. She does appear to have delta waves on EKG, possible WPW. She states that she has had palpitations intermittently for a few years. Has never sought care for this. I will have her follow-up with her doctor for further evaluation. Patient will continue Motrin and Tylenol as needed for the anterior chest wall pain. No evidence of PE or ACS. Patient counseled regarding signs and symptoms for which I believe and urgent re-evaluation would be necessary. Patient with good understanding of and agreement to plan and is comfortable going home at this time This document was made in part using voice recognition software. While efforts are made to proofread this document, sound alike and grammatical errors may occur. Departure - Departure Disposition: 01 Home, Self Care Clinical Impression: Chest wall pain, WPW (Emswc-Yudpvttfo-Yutvm syndrome) Condition: Good Instructions: ED Strain Chest Wall Follow-Up: your,doctor this week [Other] Comments: Please follow-up with your doctor this week for further care. 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 Your doctor should perform an echocardiogram and likely refer you to cardiology for further care. Return if you worsen. You can use Motrin or Tylenol for the chest wall pain. Discharge Date/Time: 10/05/21 19:08
[2021-10-05 18:30] VITALS: BP 121/70
[2021-10-05 18:46] LABS: ALBUMIN 4.5 g/dL (3.2-5.5); ALBUMIN/GLOBULIN RATIO 1.4 (1.0-2.2); ALKALINE PHOSPHATASE 36 IU/L (42-121); ALT ALANINE AMINOTRANSFERASE 16 IU/L (10-60); AST ASPARTATE AMINOTRANSFERASE 13 IU/L (10-42); BILIRUBIN,TOTAL < 0.2 mg/dL (0.2-1.0); BUN - BLOOD UREA NITROGEN 16 mg/dL (6-20); CALCIUM 9.1 mg/dL (8.5-10.3); CARBON DIOXIDE - CO2 27 mmol/L (21-32); CHLORIDE 103 mmol/L (101-111); CREATININE 0.8 mg/dL (0.4-1.0); GFR - MDRD 101 (>89); GLUCOSE 93 mg/dL (70-100); LIPASE 46 U/L (22-51); POTASSIUM 3.9 mmol/L (3.5-5.0); SODIUM 138 mmol/L (135-145); TOTAL PROTEIN 7.8 g/dL (6.7-8.2)
== END 2021-10-05 19:08 | disposition home or self-care (01) ==
LOC: ED 17:35
DX: R07.89 Other chest pain (principal); I45.6 Pre-excitation syndrome
CPT/HCPCS: 36415; 80053; 83690; 84484; 85025; 93005; 99284